=== PATIENT | male | born 1965 | race Caucasian/White ===

== ENCOUNTER 2016-12-08 07:16 | Day surgery (SDC) | payer OTHER ==
[~2016-12-08] VITALS: Ht 182.9 cm; Wt 113.4 kg
[~2016-12-08 07:16] MED LIST: FENOFIBRATE160 M1 PO; HYZAAR 100-21 TABLET PO; OMEPRAZOLE40 M1 PO; REMERON15 M2 PO; SYNTHROID125 MCG PO; SYNTHROID200 MCG PO; TRICOR; ZYRTEC10 M2 PO
== END 2016-12-08 09:27 | disposition home or self-care (01) ==
LOC: PAIN 07:16 → SDC 08:00 → PAIN 09:27
DX: M47.816 Spondylosis without myelopathy or radiculopathy, lumbar region (principal); M43.17 Spondylolisthesis, lumbosacral region; M51.26 Other intervertebral disc displacement, lumbar region; M54.5 Low back pain; I10 Essential (primary) hypertension; M54.2 Cervicalgia; E08.35 Diabetes mellitus due to underlying condition with proliferative diabetic retinopathy; E03.9 Hypothyroidism, unspecified; K21.9 Gastro-esophageal reflux disease without esophagitis; M62.830 Muscle spasm of back; G47.30 Sleep apnea, unspecified; E66.9 Obesity, unspecified; Z68.33 Body mass index [BMI] 33.0-33.9, adult; Z79.4 Long term (current) use of insulin; Z80.0 Family history of malignant neoplasm of digestive organs
CPT/HCPCS: J1030; J2250; J3010; S0020

== ENCOUNTER 2016-12-25 12:34 | Day surgery (SDC) | payer OTHER ==
[~2016-12-25] VITALS: Ht 182.9 cm; Wt 113.4 kg
[~2016-12-25 12:34] MED LIST changes: +LORTAB 7.5-3251 EACH PO; +PROAIR HFA8.5 GM IH
== END 2016-12-25 14:45 | disposition home or self-care (01) ==
LOC: PAIN 12:34 → SDC 13:30 → PAIN 13:30
DX: M47.816 Spondylosis without myelopathy or radiculopathy, lumbar region (principal); M54.5 Low back pain; M43.17 Spondylolisthesis, lumbosacral region; M62.830 Muscle spasm of back; M51.26 Other intervertebral disc displacement, lumbar region; E11.354 Type 2 diabetes mellitus with proliferative diabetic retinopathy with combined traction retinal detachment and rhegmatogenous retinal detachment; K21.9 Gastro-esophageal reflux disease without esophagitis; I10 Essential (primary) hypertension; E66.9 Obesity, unspecified; Z68.33 Body mass index [BMI] 33.0-33.9, adult; G47.30 Sleep apnea, unspecified; Z79.891 Long term (current) use of opiate analgesic
CPT/HCPCS: J1030; J2250; J3010; S0020

== ENCOUNTER 2017-03-30 07:51 | Day surgery (SDC) | payer OTHER ==
[~2017-03-30] VITALS: Ht 182.9 cm; Wt 115.2 kg
== END 2017-03-30 09:31 | disposition home or self-care (01) ==
LOC: PAIN 07:51 → SDC 08:30 → PAIN 08:30
DX: M47.816 Spondylosis without myelopathy or radiculopathy, lumbar region (principal); M54.5 Low back pain; G89.29 Other chronic pain; M51.26 Other intervertebral disc displacement, lumbar region; M43.17 Spondylolisthesis, lumbosacral region; M47.812 Spondylosis without myelopathy or radiculopathy, cervical region; E08.35 Diabetes mellitus due to underlying condition with proliferative diabetic retinopathy; K21.9 Gastro-esophageal reflux disease without esophagitis; I10 Essential (primary) hypertension; E66.9 Obesity, unspecified; Z68.34 Body mass index [BMI] 34.0-34.9, adult; E03.9 Hypothyroidism, unspecified
CPT/HCPCS: J1030; J2250; J3010; S0020

== ENCOUNTER 2017-04-20 12:44 | Day surgery (SDC) | payer OTHER ==
[~2017-04-20] VITALS: Ht 182.9 cm; Wt 115.2 kg
[2017-04-20] MEDS ORDERED: B COMPLEX #11 EACH PO (13:00)
== END 2017-04-20 14:47 | disposition home or self-care (01) ==
LOC: PAIN 12:44 → SDC 13:30 → PAIN 14:47
DX: M47.812 Spondylosis without myelopathy or radiculopathy, cervical region (principal); M54.2 Cervicalgia; G89.29 Other chronic pain; M47.816 Spondylosis without myelopathy or radiculopathy, lumbar region; I10 Essential (primary) hypertension; E03.9 Hypothyroidism, unspecified; E66.3 Overweight; Z68.33 Body mass index [BMI] 33.0-33.9, adult; E08.35 Diabetes mellitus due to underlying condition with proliferative diabetic retinopathy; K21.9 Gastro-esophageal reflux disease without esophagitis; G47.30 Sleep apnea, unspecified; Z79.891 Long term (current) use of opiate analgesic
CPT/HCPCS: J1030; J2250; J3010; S0020

== ENCOUNTER 2017-09-29 06:50 | Day surgery (SDC) | payer OTHER ==
[~2017-09-29] VITALS: Ht 182.9 cm; Wt 115.2 kg
[~2017-09-29 06:50] MED LIST changes: +B COMPLEX #11 EACH PO; +VITAMIN B COMP1 EACH PO
== END 2017-09-29 08:45 | disposition home or self-care (01) ==
LOC: PAIN 06:50 → SDC 07:00 → PAIN 08:45
DX: M51.16 Intervertebral disc disorders with radiculopathy, lumbar region (principal); M47.816 Spondylosis without myelopathy or radiculopathy, lumbar region; M47.812 Spondylosis without myelopathy or radiculopathy, cervical region; M48.061 Spinal stenosis, lumbar region without neurogenic claudication; I10 Essential (primary) hypertension; E08.35 Diabetes mellitus due to underlying condition with proliferative diabetic retinopathy; K21.9 Gastro-esophageal reflux disease without esophagitis; E78.5 Hyperlipidemia, unspecified; E03.9 Hypothyroidism, unspecified; G47.30 Sleep apnea, unspecified; Z79.891 Long term (current) use of opiate analgesic
CPT/HCPCS: 93005; J1100; J2250

== ENCOUNTER 2017-11-03 07:53 | Day surgery (SDC) | payer OTHER ==
[~2017-11-03] VITALS: Ht 182.9 cm; Wt 115.2 kg
== END 2017-11-03 09:20 | disposition home or self-care (01) ==
LOC: PAIN 07:53 → SDC 08:45 → PAIN 09:20
PROC: 3E0R3BZ Introduction of Anesthetic Agent into Spinal Canal, Percutaneous Approach (ICD-10-PCS; principal; 2017-11-03)
PROC: 3E0R33Z Introduction of Anti-inflammatory into Spinal Canal, Percutaneous Approach (ICD-10-PCS; principal; 2017-11-03)
DX: M51.16 Intervertebral disc disorders with radiculopathy, lumbar region (principal); M47.816 Spondylosis without myelopathy or radiculopathy, lumbar region; E11.9 Type 2 diabetes mellitus without complications; K21.9 Gastro-esophageal reflux disease without esophagitis; E78.5 Hyperlipidemia, unspecified; I10 Essential (primary) hypertension; E03.9 Hypothyroidism, unspecified; G47.30 Sleep apnea, unspecified; Z79.891 Long term (current) use of opiate analgesic
CPT/HCPCS: J1100; J2250